=== PATIENT | female | born 2005 | race Two or more races ===

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

== ENCOUNTER 2024-01-05 13:24 | Emergency (ER) | payer OTHER ==
[2024-01-05 16:15] LABS: HIV RAPID SCREEN RLFX COMFIRM NON-REACTIVE (Non-React)
[2024-01-05 17:01] LABS: C. TRACHOMATIS BY PCR NOT DETECTED; N. GONORRHOEAE BY PCR NOT DETECTED
[2024-01-05 17:52] LABS: APPEARANCE,URINE CLOUDY (Clear); BILIRUBIN,URINE NEGATIVE (Negative); COLOR,URINE LIGHT YELLOW (Yellow); GLUCOSE,URINE NEGATIVE (Negative); KETONES,URINE NEGATIVE (Negative); LEUKOCYTE ESTERASE,URINE 3+ (Negative); NITRITE,URINE NEGATIVE (Negative); OCCULT BLOOD,URINE TRACE-LYSED (Negative); PH,URINE 6.5 (5.0-8.0); PROTEIN,URINE NEGATIVE (Negative); UROBILINOGEN,URINE 0.2 (0.2-1.0)
[2024-01-05] MEDS: Fluconazole 150 MG Tab PO ONE (18:02)
[2024-01-05 18:29] LABS: BACTERIA,URINE MODERATE /hpf (FEW); MUCUS,URINE NOT SEEN /hpf (FEW); RBC,URINE 0-5 /hpf (0-5); WBC,URINE 40-50 /hpf (0-5)
[2024-01-05 18:37] LABS: YEAST,URINE FEW (NOT SEEN)
[2024-01-05 18:55] LABS: RAPID PLASMA REAGIN,RPR REACTIVE (NONREACTIVE)
[2024-01-05] MEDS: Cefdinir 300 MG Cap PO ONE (19:19)
== END 2024-01-05 19:27 | disposition home or self-care (01) ==
LOC: EDBD → JD.ED 13:24 → MERGE 13:24 → JD.ED 19:27
DX: N39.0 Urinary tract infection, site not specified (principal); Z79.899 Other long term (current) drug therapy
CPT/HCPCS: 0352U; 36415; 81001; 81025; 86592; 86780; 87086; 87449; 87491; 87591; 99283; A9270; G0433

== ENCOUNTER 2025-01-07 21:54 | Emergency (ER) | payer OTHER | END 2025-01-07 23:00 | disposition home or self-care (01) | LOC: MERGE 21:54 → JD.ED 21:54 | DX: Z03.89 Encounter for observation for other suspected diseases and conditions ruled out (principal) | CPT/HCPCS: 99283 ==